=== PATIENT | female | born 1975 | race Caucasian/White ===

== ENCOUNTER 2016-09-24 22:00 | Emergency (ER) | payer OTHER ==
[~2016-09-24] VITALS: Ht 170.2 cm; Wt 77.1 kg
--- NOTE | ~2016-09-24 | EKG ---
PATIENT: YOBANI MCMULLEN UNIT #: [id number] Ventricular Rate: 110 BPM Atrial Rate: 110 BPM P-R Interval: 162 ms QRS Duration: 88 ms Q-T Interval: 352 ms QTC Calculation(Bezet): 476 ms P [place]: 69 degrees Calculated R [place]: 79 degrees Calculated T [place]: 18 degrees Diagnosis Line: Sinus tachycardia Diagnosis Line: Possible Left atrial enlargement Diagnosis Line: Borderline ECG Diagnosis Line: No previous ECGs available Diagnosis Line: Confirmed by KASHIF HENDRICKS MD ([id number]) on Diagnosis Line: 09/25/2016 11:57:55 AM INTERPRETING MD: RUTHIE PANTOJA
--- NOTE | ~2016-09-24 | CR72 ---
[facility] A Service of [facility] & [facility] RADIOLOGY TEXT RESULTS PATIENT: YOBANI MCMULLEN LOCATION: [facility] : 75 UNIT #: [id number] AGE: [address]: Talisha Butler APRN SEX: F ORDER DR: [id number] [facility] [address] [place], [place] [address] [id number] E MR#: [id number] Acc #: [id number] NAME: YOBANI MCMULLEN : 1975 SEX: F STUDY DATE/TIME: 09/25/2016 UNIT: [facility] ROOM: STUDY DESCRIPTION: CR Chest Single View Portable Attending Physician: You MejiaPFernandoRAmy Ordering Physician: Talisha Butler A.P.R.N. Primary Care Physician: Erick Turner Jr. A.P.R.NFernando MEDICAL IMAGING REPORT This report is preliminary unless electronic signature is present EXAM Portable chest 09/25 at 01:55 INDICATIONS Chest pain with heart racing intermittently for the last month. 1 episode tonight at 10:00 p.m. COMPARISON 07/16/2013 FINDINGS A single AP portable view of the chest shows both lungs to be clear. The heart is normal in size. The mediastinal contour is normal. No significant bone abnormalities are seen. IMPRESSION Normal portable chest. Dictated by... Shaq Yancey Jr., M.D. THIS IS AN ELECTRONICALLY VERIFIED REPORT Shaq Yancey Jr., M.D. at 09/25/2016 9:40 PM MARTY/brandon TD: 09/25/2016 09:53 JOB #: [id number] MEDICAL IMAGING REPORT Page 1 of 1 COPY
[~2016-09-24 22:00] MED LIST: DOXYCYCLINE PO; FLEXERIL PO; MEDROL PO; ULTRAM PO
[2016-09-25 01:56] LABS: POC - CKMB <1.0 ng/mL (0.0-7.9); POC - TROPONIN <0.05 ng/mL (<=0.05)
[2016-09-25 02:09] LABS: BASOPHIL% 0.6 % (0-2.5); EOSINOPHIL% 0.5 % (0.0-7.0); HEMOGLOBIN 13.5 gm/dL (12.0-16.0); LYMPHOCYTE# 2.4 X10e3 (1.0-3.5); LYMPHOCYTE% 28.7 % (17.0-45.0); MEAN CELL VOLUME 90.8 FL (83-96); MEAN PLATELET VOLUME 8.5 FL (6.5-11.5); MONOCYTE# 0.4 X10e3 (0-1.0); MONOCYTE% 4.9 % (3.0-12.0); NEUTROPHIL# 5.4 X10e3 (1.5-7.1); NEUTROPHIL% 65.3 % (40-75); PLATELET COUNT 264 X10e3 (140-420); RED BLOOD COUNT 4.51 X10e (3.90-5.30); RED CELL DISTRIBUTION WIDTH 12.8 % (11.0-15.5); WHITE BLOOD COUNT 8.3 X10e3 (4.0-10.5)
[2016-09-25 02:10] LABS: DIFF IND NO
[2016-09-25 02:14] LABS: CULTURE INDICATED? YES; URINE APPEARANCE CLEAR; URINE BACTERIA AUWI 1+ (NEGATIVE); URINE BILIRUBIN NEG (NEG); URINE BLOOD NEG (NEG); URINE COLOR YELLOW; URINE GLUCOSE NEG (NEG); URINE KETONE NEG (NEG); URINE LEUKOCYTE ESTERASE 1+ (NEG); URINE NITRATE NEG (NEG); URINE PROTEIN NEG (NEG); URINE SOURCE CLEAN CATCH; URINE SQUAMOUS EPITHELIAL CELL FEW /[HPF]; URINE UROBILINOGEN 0.2 MG/DL (NEG)
[2016-09-25 02:33] LABS: ALBUMIN SERUM 4.3 g/dL (3.5-5.0); BILIRUBIN, DIRECT 0.1 mg/dL (0.0-0.2); BILIRUBIN,INDIRECT 0.1 mg/dL (0.0-0.9); BILIRUBIN,TOTAL 0.2 mg/dL (0.2-2.0); BUN/CREATININE RATIO 13.33; CALCIUM SERUM 9.4 mg/dL (8.4-10.2); CREATININE SERUM 0.6 mg/dL (0.6-1.4); GLOM FILT RATE Estimated 113.2 mL/min (>60); PROTEIN TOTAL SERUM 7.4 g/dL (6.0-8.3)
[2016-09-25 02:53] LABS: AMPHETAMINE NEG (NEG); BARBITURATES NEG (NEG); BENZODIAZEPINES NEG (NEG); COCAINE NEG (NEG); MARIJUANA NEG (NEG); OPIATES NEG (NEG); TRICYCLIC ANTIDEPRESSANTS NEG (NEG); U METHADONE NEG (NEG)
[2016-09-25 03:38] LABS: POC - CKMB <1.0 ng/mL (0.0-7.9); POC - TROPONIN <0.05 ng/mL (<=0.05)
== END 2016-09-25 03:42 | disposition home or self-care (01) ==
LOC: CED 22:00
PROVIDERS: Nurse Practitioner
DX: R00.2 Palpitations (principal); N39.0 Urinary tract infection, site not specified; F17.210 Nicotine dependence, cigarettes, uncomplicated
CPT/HCPCS: 36415; 71010; 80048; 80076; 80307; 81003; 82553; 83690; 84484; 84703; 85025; 87086; 93005; 96360; 99285

== ENCOUNTER 2016-10-13 18:34 | Emergency (ER) | payer OTHER ==
[~2016-10-13] VITALS: Ht 170.2 cm; Wt 77.1 kg
--- NOTE | ~2016-10-13 | EKG ---
PATIENT: YOBANI MCMULLEN UNIT #: [id number] Ventricular Rate: 106 BPM Atrial Rate: 106 BPM P-R Interval: 128 ms QRS Duration: 84 ms Q-T Interval: 352 ms QTC Calculation(Bezet): 467 ms P [place]: 72 degrees Calculated R [place]: 72 degrees Calculated T [place]: 46 degrees Diagnosis Line: Sinus tachycardia Diagnosis Line: Otherwise normal ECG Diagnosis Line: When compared with ECG of 24-SEP-2016 22:05, Diagnosis Line: No significant change was found Diagnosis Line: Confirmed by FREYA LUNA MD ([id number]) on 10/14/2016 Diagnosis Line: 6:24:22 PM INTERPRETING MD: CHERYL PANTOJA
--- NOTE | ~2016-10-13 | CR72 ---
[facility] A Service of [facility] & [facility] RADIOLOGY TEXT RESULTS PATIENT: YOBANI GALARZA LOCATION: [facility] : 75 UNIT #: [id number] AGE: [address]: Cristino Whiteside MD SEX: F ORDER DR: [id number] [facility] [address] [place], [place] [address] [id number] E MR#: [id number] Acc #: [id number] NAME: YOBANI MCMULLEN : 1975 SEX: F STUDY DATE/TIME: 10/13/2016 18:57 UNIT: [facility] ROOM: STUDY DESCRIPTION: CR Chest Single View Portable Attending Physician: Cristino Whiteside M.D. Ordering Physician: Cristino Whiteside M.D. Primary Care Physician: Erick Turner Jr., A.P.R.N. MEDICAL IMAGING REPORT This report is preliminary unless electronic signature is present EXAM Portable chest HISTORY Shortness of air and cough and congestion for 4 days. FINDINGS A single AP portable view of the chest shows both lungs to be clear. The heart is normal in size. The mediastinal contour is normal. No significant bone abnormalities are seen. IMPRESSION Normal portable chest. Dictated by... Eliazar Najera M.D. THIS IS AN ELECTRONICALLY VERIFIED REPORT Eliazar Najera M.D. at 10/14/2016 11:17 PM DFL/df TD: 10/14/2016 07:52 JOB #: [id number] MEDICAL IMAGING REPORT Page 1 of 1 COPY
[2016-10-13 19:17] LABS: BASOPHIL# 0.1 X10e3 (0-0.3); BASOPHIL% 0.7 % (0-2.5); EOSINOPHIL# 0.1 X10e3 (0-0.7); EOSINOPHIL% 0.7 % (0.0-7.0); HEMATOCRIT 43.3 % (35.0-45.0); HEMOGLOBIN 14.6 gm/dL (12.0-16.0); LYMPHOCYTE# 3.2 X10e3 (1.0-3.5); LYMPHOCYTE% 37.5 % (17.0-45.0); MEAN CELL VOLUME 90.4 FL (83-96); MEAN CORPUSCULAR HEMOGLOBIN 30.5 PG (28-34); MEAN CORPUSCULAR HGB CONC 33.7 g/dL (30-36); MEAN PLATELET VOLUME 8.4 FL (6.5-11.5); MONOCYTE# 0.4 X10e3 (0-1.0); MONOCYTE% 4.6 % (3.0-12.0); NEUTROPHIL# 4.9 X10e3 (1.5-7.1); NEUTROPHIL% 56.5 % (40-75); PLATELET COUNT 271 X10e3 (140-420); RED BLOOD COUNT 4.78 X10e (3.90-5.30); WHITE BLOOD COUNT 8.6 X10e3 (4.0-10.5)
[2016-10-13 19:19] LABS: DIFF IND NO
[2016-10-13 19:39] LABS: PROTHROMBIN TIME (PATIENT) 10.7 SECONDS (10.0-11.7)
[2016-10-13 19:43] LABS: ALBUMIN SERUM 4.7 g/dL (3.5-5.0); BILIRUBIN, DIRECT 0.1 mg/dL (0.0-0.2); BILIRUBIN,INDIRECT 0.3 mg/dL (0.0-0.9); BILIRUBIN,TOTAL 0.4 mg/dL (0.2-2.0); BUN/CREATININE RATIO 13.33; CALCIUM SERUM 9.6 mg/dL (8.4-10.2); CREATININE SERUM 0.6 mg/dL (0.6-1.4); GLOM FILT RATE Estimated 113.2 mL/min (>60); POTASSIUM 3.5 mmol/L (3.5-5.1)
[2016-10-13 20:16] LABS: POC - CKMB <1.0 ng/mL (0.0-7.9); POC - TROPONIN <0.05 ng/mL (<=0.05)
[2016-10-13 20:28] LABS: AMPHETAMINE NEG (NEG); BARBITURATES NEG (NEG); BENZODIAZEPINES NEG (NEG); COCAINE NEG (NEG); MARIJUANA NEG (NEG); OPIATES NEG (NEG); TRICYCLIC ANTIDEPRESSANTS NEG (NEG); U METHADONE NEG (NEG)
[2016-10-13 21:08] LABS: POC - CKMB <1.0 ng/mL (0.0-7.9); POC - TROPONIN <0.05 ng/mL (<=0.05)
== END 2016-10-13 21:20 | disposition home or self-care (01) ==
LOC: CED 18:34
PROVIDERS: Emergency Medicine
DX: R00.2 Palpitations (principal); F17.200 Nicotine dependence, unspecified, uncomplicated
CPT/HCPCS: 36415; 71010; 80048; 80076; 80307; 82553; 83735; 84443; 84484; 84703; 85025; 85610; 85730; 93005; 96360; 99285

== ENCOUNTER → 2016-10-14 | Outpatient (CLI) | payer OTHER ==
--- NOTE | ~2016-10-14 | HM ---
Unit #: [id number] #: [id number] Patient: YOBANI GALARZA [id number] [address] [address] [id number] O MR#: [id number] NAME: YOBANI GALARZA : 1975 SEX: F STUDY DATE/TIME: 10/14/2016 UNIT: CE ROOM: STUDY DESCRIPTION: Holter Monitor Attending Physician: Cristino Whiteside M.D. Referring Physician: Cristino Whiteside M.D. Primary Care Physician: Erick Turner Jr., A.P.RFernandoN. CARDIOLOGY REPORT EXAM Holter monitor DATE APPLIED 10/14/2016 DATE SCANNED 10/17/[address] Cristino Whiteside READ BY Dr. Avery Chang INDICATION Palpitations FINDINGS 1. Underlying rhythm is normal sinus. Minimum recorded heart rate is 52, maximal recorded heart rate is 160 beats per minute with an average heart rate of 78 per minute. 2. There are no premature atrial contractions. 3. Computer recorded 14 premature ventricular contractions. 4. There is no sustained atrial or ventricular tachyarrhythmia. 5. There is no AV maria guadalupe block, sinus arrest or sinus pause. 6. Patient did not maintain any symptom or keep an activity diary. IMPRESSION [id number] ambulatory monitoring is within normal limits with normal sinus rhythm and ventricular . Dictated by... Vito Garcia/nelly TD: 10/23/2016 22:28 Unit #: [id number] #: [id number] Patient: YOBANI GALARZA JOB #: [id number] CC: Cristino Whiteside M.D. CARDIOLOGY REPORT Page 1 of 1 X Avery Chang MD HOLTER MONITOR REPORT
== END | disposition home or self-care (01) ==
LOC: CEKG 16:23
DX: R00.2 Palpitations (principal)
CPT/HCPCS: 93225; 93226